=== PATIENT | female | born 1985 | race African-American/Black ===

== ENCOUNTER 2018-12-16 14:29 | Emergency (ER) | payer BC ==
[~2018-12-16] VITALS: Ht 165.1 cm; Wt 72.6 kg
[2018-12-16 15:02] LABS: HEMATOCRIT 36.4 % (37.0-47.0); HEMOGLOBIN 12.2 gm/dL (12.0-15.0); MCHC 33.5 g/dL (28.0-37.0); MCV 92.5 fL (80.0-100.0); MPV 7.8 fl. (7.2-11.1); NUCLEATED RBCS 0 /100WBC; PLATELET COUNT* 277 thou/uL (150-400); RBC 3.94 mil/uL (4.20-5.00); RDW-CV 12.8 % (10.5-14.5)
[2018-12-16 15:20] LABS: URINE BILIRUBIN NEGATIVE (Negative); URINE BLOOD NEGATIVE (Negative); URINE CLARITY CLEAR; URINE COLOR YELLOW; URINE GLUCOSE-RANDOM NEGATIVE (Negative); URINE KETONES 1+ (Negative); URINE LEUKOCYTES-REFLEX NEGATIVE (Negative); URINE NITRITE-REFLEX NEGATIVE (Negative); URINE PROTEIN NEGATIVE (Negative); URINE SPECIFIC GRAVITY 1.025 (1.005-1.030); URINE UROBILINOGEN 0.2 E.U./dl (0.2-1.0)
[2018-12-16 15:24] LABS: ALBUMIN 3.8 g/dL (3.4-5.0); CALCIUM 8.8 mg/dL (8.5-10.1); CREATININE 0.8 mg/dL (0.6-1.3); POTASSIUM 4.1 mmol/L (3.5-5.1); TOTAL BILIRUBIN 0.2 mg/dL (<0.1-1.0); TOTAL PROTEIN 7.8 g/dL (6.4-8.2)
[2018-12-16] MEDS ORDERED: ACETAMINOPHEN-1 EAC1 PO (15:33)
[2018-12-16] MEDS ORDERED: ZOFRAN ODT4 MG PO (15:33)
[2018-12-16 15:44] VITALS: BP 109/49
[2018-12-16 16:38] LABS: ABSOLUTE EOSINOPHILS 0.1 thou/uL (0.0-0.7); ABSOLUTE LYMPHOCYTES 0.8 thou/uL (0.8-5.3); ABSOLUTE MONOCYTES 0.2 thou/uL (0.0-1.2); ABSOLUTE NEUTROPHILS 8.9 thou/uL (1.6-8.1); ATYPICAL LYMPHS 1 %; PLATELET ESTIMATE ADEQUATE
== END 2018-12-16 15:45 | disposition home or self-care (01) ==
LOC: M.ERS 14:29
PROVIDERS: Physician Assistant
DX: R11.2 Nausea with vomiting, unspecified (principal); R10.84 Generalized abdominal pain

== ENCOUNTER 2019-07-01 17:51 | Emergency (ER) | payer BC ==
[~2019-07-01] VITALS: Ht 165.1 cm; Wt 73.5 kg
[~2019-07-01 17:51] MED LIST: ACETAMINOPHEN-1 EAC1 PO; ZOFRAN ODT4 MG PO
[2019-07-01 18:29] LABS: URINE BILIRUBIN NEGATIVE (Negative); URINE BLOOD 3+ (Negative); URINE CLARITY CLEAR; URINE COLOR YELLOW; URINE GLUCOSE-RANDOM NEGATIVE (Negative); URINE KETONES NEGATIVE (Negative); URINE LEUKOCYTES-REFLEX NEGATIVE (Negative); URINE NITRITE-REFLEX NEGATIVE (Negative); URINE PROTEIN NEGATIVE (Negative); URINE SPECIFIC GRAVITY 1.015 (1.005-1.030); URINE UROBILINOGEN 0.2 E.U./dl (0.2-1.0)
[2019-07-01 18:35] LABS: CRYSTALS None Seen /LPF (None Seen); MUCUS None Seen strn/LPF (None Seen); SQUAMOUS >10 Many /LPF (0-3); URINE WBC-REFLEX 0-5 Rare /HPF (0-5)
[2019-07-01 18:36] LABS: BACTERIA-REFLEX 1-9 Few /HPF (None Seen); CASTS None Seen /LPF (None Seen)
[2019-07-01 19:04] LABS: ABSOLUTE BASOPHILS 0.1 thou/uL (0.0-0.2); ABSOLUTE LYMPHOCYTES 2.8 thou/uL (0.8-5.3); ABSOLUTE MONOCYTES 0.4 thou/uL (0.0-1.2); ABSOLUTE NEUTROPHILS 1.9 thou/uL (1.6-8.1); EOSINOPHILS 0.6 %; HEMATOCRIT 34.4 % (37.0-47.0); HEMOGLOBIN 11.8 gm/dL (12.0-15.0); LYMPHOCYTES 54.9 %; MCH 32.2 pg (26.0-34.0); MCHC 34.3 g/dL (28.0-37.0); MCV 93.8 fL (80.0-100.0); MONOCYTES 7.3 %; MPV 7.9 fl. (7.2-11.1); NUCLEATED RBCS 0 /100WBC; PLATELET COUNT* 289 thou/uL (150-400); POLYS 36.2 %; RBC 3.67 mil/uL (4.20-5.00); WBC 5.2 thou/uL (4.0-11.0)
[2019-07-01 19:19] LABS: CALCIUM 9.3 mg/dL (8.5-10.1); CREATININE 0.9 mg/dL (0.6-1.3); POTASSIUM 3.9 mmol/L (3.5-5.1)
[2019-07-01] MEDS ORDERED: NABUMETONE 750750 M1 PO (19:22)
[2019-07-01] MEDS ORDERED: ONDANSETRON HCL4 M2 PO (19:22)
[2019-07-01 19:23] LABS: ALBUMIN 3.9 g/dL (3.4-5.0); TOTAL BILIRUBIN 0.1 mg/dL (<0.1-1.0)
[2019-07-01 20:15] VITALS: BP 118/68
== END 2019-07-01 20:15 | disposition home or self-care (01) ==
LOC: M.ERS 17:51
PROVIDERS: Nurse Practitioner Family
DX: D64.9 Anemia, unspecified (principal); N92.1 Excessive and frequent menstruation with irregular cycle; Z98.51 Tubal ligation status

== ENCOUNTER 2019-10-24 08:22 | Emergency (ER) | payer BC ==
[~2019-10-24] VITALS: Ht 165.1 cm; Wt 73.5 kg
[~2019-10-24 08:22] MED LIST changes: +NABUMETONE 750750 M1 PO; +ONDANSETRON HCL4 M2 PO
[2019-10-24] MEDS ORDERED: METRONIDAZOLE500 M4 PO (08:33)
[2019-10-24] MEDS ORDERED: DIFLUCAN150 MG PO (08:41)
[2019-10-24 08:46] VITALS: BP 107/56
== END 2019-10-24 08:47 | disposition home or self-care (01) ==
LOC: M.ERS 08:22
DX: N89.8 Other specified noninflammatory disorders of vagina (principal); Z98.51 Tubal ligation status